=== PATIENT | male | born 1945 | race Caucasian/White ===

== ENCOUNTER → 2016-11-04 | Outpatient (CLI) | payer MEDICARE, OTHER ==
--- NOTE | 2016-11-04 16:10 | RAD ---
EXAM DESCRIPTION: Abdomen radiography. CLINICAL HISTORY: Renal stones, renal colic COMPARISON: March 20, 2015 TECHNIQUE: One view. FINDINGS: Bowel gas pattern is non-obstructed. There is no obvious free intraperitoneal air. Visualized segments of the abdominal organs are unremarkable. No suspicious bone lesion or fracture is seen. IMPRESSION: Bilateral small renal stones noted. The largest is seen within the lower pole of left kidney and measures approximately 3-4 mm in diameter. These appear unchanged when compared to prior. Electronically signed by: Sage Brannon MD 11/04/2016 16:08
== END | disposition home or self-care (01) ==
LOC: RAD 13:08
PROVIDERS: ATTEND Urology
DX: N20.0 Calculus of kidney (principal)

== ENCOUNTER → 2016-11-14 | Outpatient (CLI) | payer MEDICARE, OTHER | LOC: GMAM 09:18 | PROVIDERS: ATTEND Family Medicine | DX: R31.29 Other microscopic hematuria (principal); Z12.5 Encounter for screening for malignant neoplasm of prostate ==

== ENCOUNTER → 2016-12-31 | Outpatient (CLI) | payer MEDICARE, OTHER | END | disposition home or self-care (01) | LOC: LAB.O 14:52 | PROVIDERS: ATTEND Internal Medicine Hematology & Oncology | DX: D75.1 Secondary polycythemia (principal); D72.829 Elevated white blood cell count, unspecified ==

== ENCOUNTER → 2017-04-15 | Outpatient (CLI) | payer MEDICARE, OTHER ==
--- NOTE | 2017-04-16 12:23 | US ---
EXAM DESCRIPTION: Testicular CLINICAL HISTORY: 71 years Male, SWELLING OF TESTICLE COMPARISON: None. FINDINGS: Scrotal and testicular sonography demonstrates moderate bilateral hydroceles. Left testicle measures 4.4 x 3.4 x 3.2 cm with the epididymis estimated at 1.2 x 1.2 x 0.9 cm. The upper and midportion of the left testicle appears normal but adjacent to the lower pole of the left testicle in what appears to be the epididymis is a heterogeneous predominantly solid but partially cystic mass that appears to be extratesticular in location and likely within the epididymis. To my evaluation this lesion is approximately 1.5 cm in size and is predominantly solid in appearance. Etiology is unclear but both cystic and solid etiologies should be considered but this does appear to be extratesticular in location based on the current sonographic images. Right testicle is slightly elongated at 5.3 x 2.8 x 3.7 cm and demonstrates an epididymis that measures 1.2 x 1.4 x 1.1 cm. Moderate hydrocele is noted. No distinct mass is identified. Normal vascular flow is present. IMPRESSION: Bilateral moderate hydroceles and essentially normal-appearing testes bilaterally with the left testicle slightly larger in diameter and the right testicle slightly elongated. Abnormal left epididymis with a heterogeneous predominantly solid approximate 1.5 cm lesion in the inferior epididymis adjacent to the lower pole of the left testicle but appearing to lie adjacent but outside the testicle. Urological consultation is recommended. Follow-up study may be of value if there is any concern for an acute inflammatory process. Electronically signed by: Jhonatan Cooper MD 04/16/2017 12:21 PM CDT
== END ==
LOC: US 15:11
PROVIDERS: ATTEND Family Medicine
DX: N50.89 Other specified disorders of the male genital organs (principal); N43.3 Hydrocele, unspecified

== ENCOUNTER → 2017-10-16 | Outpatient (CLI) | payer MEDICARE, OTHER | END | disposition home or self-care (01) | LOC: GMAM 11:08 | PROVIDERS: ATTEND Family Medicine | DX: Z79.899 Other long term (current) drug therapy (principal) ==

== ENCOUNTER → 2018-01-14 | Outpatient (CLI) | payer OTHER | LOC: GMAM 10:48 | PROVIDERS: ATTEND Family Medicine | DX: Z12.5 Encounter for screening for malignant neoplasm of prostate (principal) ==

== ENCOUNTER → 2018-02-16 | Outpatient (CLI) | payer OTHER ==
--- NOTE | 2018-02-17 07:34 | RAD ---
EXAM DESCRIPTION: Abdomen, single view CLINICAL HISTORY: RENAL STONE, 1-2 MM LEFT FINDINGS/ IMPRESSION: Comparison 11/04/2016. No diagnostic renal stone over the kidneys ureters or bladder Radiation prostate seeds Severe lumbar spondylosis Electronically signed by: Jhonatan Bowers MD 02/17/2018 7:33 AM CDT
== END ==
LOC: RAD 13:42
PROVIDERS: ATTEND Urology
DX: N20.0 Calculus of kidney (principal)

== ENCOUNTER → 2018-08-06 | Outpatient (CLI) | payer OTHER ==
--- NOTE | 2018-08-06 12:33 | US ---
EXAM DESCRIPTION: Venous,Lower Extremity RT CLINICAL HISTORY: ACUTE VENOUS EMBOLISM AND THROMBOSIS OF DEEP VESSELS OF DISTAL LE COMPARISON: None Available. TECHNIQUE: Right lower extremity venous duplex FINDINGS: There is no DVT identified. There is normal color flow observed with good flow augmentation. All deep veins compress normally. Bakers cyst is again noted. IMPRESSION: Negative for DVT Electronically signed by: Abundio Hong MD 08/06/2018 12:31 PM RN GYN
== END ==
LOC: US 08:51
PROVIDERS: ATTEND Family Medicine
DX: I82.491 Acute embolism and thrombosis of other specified deep vein of right lower extremity (principal)

== ENCOUNTER → 2018-08-10 | Outpatient (CLI) | payer OTHER | LOC: GMAM 14:40 | PROVIDERS: ATTEND Family Medicine | DX: I50.22 Chronic systolic (congestive) heart failure (principal) ==

== ENCOUNTER → 2019-09-06 | Outpatient (CLI) | payer OTHER ==
--- NOTE | 2019-09-06 15:52 | RAD ---
EXAM DESCRIPTION: Abdomen, 4 radiographs CLINICAL HISTORY: KIDNEY STONES FINDINGS/ IMPRESSION: Comparison 02/16/2018 Prostate radiation seeds. Faint calcific density overlies the mid to lower left kidney, possibly a 4 mm calculus. No other diagnostic renal, ureteral or bladder calculus Normal bowel gas pattern. No organomegaly or obvious abdominal mass lesion Electronically signed by: Jhonatan Bowers MD 09/06/2019 3:51 PM [facility]
== END ==
LOC: RAD 13:39
PROVIDERS: ATTEND Urology
DX: N20.0 Calculus of kidney (principal)

== ENCOUNTER → 2019-11-10 | Outpatient (CLI) | payer OTHER ==
--- NOTE | 2019-11-11 15:05 | US ---
EXAM DESCRIPTION: Carotid Duplex: ULTRASOUND. CLINICAL HISTORY: 74 years Male OCCLUSION AND STENOSIS OF MEGHANN CAROTID ARTERIES COMPARISON: None. TECHNIQUE: Transcutaneous scanning utilizing trent-scale and Doppler modes to evaluate the bilateral carotid systems and vertebral arteries. Percentage of diameter of stenosis or no stenosis recorded will be based upon NASCET criteria. FINDINGS: Peak systolic/end diastolic (CM-Sec) CCA Right 39/6 Left 53/13. ICA Right proximal 21/6, distal 41/13. Left proximal 30/12, mid 33/14. Vertebral Right 44/14 Left 24/9. ECA (PS Only) Right 46 left 52. ICA/CCA peak systolic ratio: Right 1.0 Left 0.6 ICA/CCA end diastolic ratio: Right 2.3 Left 1.1 Vertebral arteries: antegrade flow. Comments: Soft plaque in the left CCA bulb. Minimal calcification right CCA bulb with area and diameter stenosis approximately 20%. IMPRESSION: 1. Doppler evaluation of the bilateral carotid systems and vertebral arteries shows no hemodynamically significant stenoses. 2. No significant amount of plaque seen in the carotid arteries bilaterally. Bilateral vertebral arteries showed antegrade-cephalad flow. Electronically signed by: Wesley Estes MD 11/11/2019 3:03 PM [facility]
== END ==
LOC: LAB.O 09:38
PROVIDERS: ATTEND Family Medicine
DX: I65.23 Occlusion and stenosis of bilateral carotid arteries (principal); D50.9 Iron deficiency anemia, unspecified

== ENCOUNTER → 2020-09-19 | Outpatient (CLI) | payer OTHER ==
--- NOTE | 2020-09-20 09:17 | CT ---
Study: CT abdomen and pelvis. Indication: HEMATURIA Technique: CT of the abdomen and pelvis obtained without intravenous contrast. This exam was performed according to our departmental dose-optimization program, which includes automated exposure control, adjustment of the mA and/or kV according to patient size and/or use of iterative reconstruction technique. Comparison: None. Findings: Fibrotic changes bilateral lung bases. Cardiomegaly. Pacemaker. Small liver. Questionable mild nodularity of the liver contour. Gallbladder, pancreas, spleen demonstrate a normal unenhanced CT appearance. Mild bilateral adrenal gland thickening, likely hyperplasia. Mild nonspecific bilateral perinephric stranding. Several millimetric nonobstructing bilateral renal calculi with the largest on the left measuring up to 4 mm. No obstructing stone. No hydronephrosis. Bladder incompletely distended. Prostate gland seeds noted. Colonic diverticulosis. Stomach, small bowel, and appendix unremarkable. No free fluid. No free air. No pathologically enlarged lymphadenopathy. Pronounced atherosclerosis aorta. 2.8 cm left internal iliac artery aneurysm on image 126. Degenerative changes of the spine noted. Impression: Several millimetric nonobstructing bilateral renal calculi. No hydronephrosis. 2.8 cm left internal iliac artery aneurysm. Vascular surgery consultation recommended. Questionable cirrhosis. Correlation with liver function tests recommended. Additional findings as above. Electronically signed by: Durga Mendez MD 09/20/2020 9:15 AM VP ACCOUNT DIRECTOR
== END ==
LOC: CT 13:07
PROVIDERS: ATTEND Urology
DX: R31.0 Gross hematuria (principal); N20.0 Calculus of kidney; I72.3 Aneurysm of iliac artery

== ENCOUNTER → 2020-11-27 | Outpatient (CLI) | payer OTHER ==
--- NOTE | 2020-11-27 15:20 | US ---
EXAM DESCRIPTION: Liver: ULTRASOUND. CLINICAL HISTORY: abnormal diagnostic imaging of liver and billary tract COMPARISON: None. TECHNIQUE: Transabdominal scannin-dimensional and Doppler modes. FINDINGS: Gallbladder: Normal size. Sludge in the gallbladder. Echogenic projects on the anterior wall measuring 4.8 and 3.2 mm and nonmobile with patient change in position No fluid around the gallbladder. No wall thickening. 2.7 mm. Non-tender with transducer pressure. Common bile duct: caliber 7.1 mm which is dilated. Liver: Heterogeneously increased echogenicity; contour liver capsule smooth where seen. No fluid around the liver. Intrahepatic biliary ducts normal caliber. Doppler hepatopedal flow portal vein. 9 mm. Long axis right lobe unable to evaluate due to Jose and intestinal gas. At least 15.3 cm. Pancreas: normal size and echogenicity. Duct not seen. Right kidney: long axis measures 11.0 cm. Volume 238.9 ml. Cortical echogenicity heterogeneously increased equal to the liver. Cortical thickness 12 mm smooth capsule. No stones; no hydronephrosis. Aorta proximal: 1.8 cm normal caliber. IMPRESSION: 1. Gallbladder containing at least 2 nonmovable polyps and sludge. No definite stones. Normal wall thickness with no fluid. Abdominal wall nontender. Common bile duct mildly dilated but no echogenic stones seen in the visualized segment no ascites. 2. Heterogeneously liver with steatosis. Enlarged, but unable to measure the entire sagittal length of the right lobe due to patient body habitus and intestinal gas. Physiologic ducts and vascularity. Smooth capsule and no ascites. 3. Increased echogenicity in the right kidney with no stones or hydronephrosis. Most likely age-related and less likely mild degree of medical renal disease. Normal caliber of the proximal abdominal aorta. Electronically signed by: Wesley Estes MD 11/27/2020 3:19 PM [employer]ER
== END ==
LOC: US 09:12
PROVIDERS: ATTEND Family Medicine
DX: K82.4 Cholesterolosis of gallbladder (principal); K76.0 Fatty (change of) liver, not elsewhere classified; N28.9 Disorder of kidney and ureter, unspecified